=== PATIENT | female | born 1990 | race Caucasian/White ===

== ENCOUNTER 2017-09-11 10:08 | Emergency (ER) | payer OTHER | END 2017-09-11 12:57 | disposition home or self-care (01) | LOC: FTE 10:08 | DX: J06.9 Acute upper respiratory infection, unspecified (principal) | CPT/HCPCS: 99283; Z7502 ==

== ENCOUNTER 2017-10-13 08:44 | Emergency (ER) | payer OTHER | END 2017-10-13 10:13 | disposition home or self-care (01) | LOC: FTE 08:44 | DX: J06.9 Acute upper respiratory infection, unspecified (principal) | CPT/HCPCS: 99283; Z7502 ==

== ENCOUNTER 2018-02-08 08:08 | Emergency (ER) | payer OTHER | END 2018-02-08 09:33 | disposition home or self-care (01) | LOC: FTE 08:08 | DX: S99.912A Unspecified injury of left ankle, initial encounter (principal); S99.922A Unspecified injury of left foot, initial encounter; X58.XXXA Exposure to other specified factors, initial encounter; Y92.9 Unspecified place or not applicable | CPT/HCPCS: 73610; 81025; 99283-25 ==

== ENCOUNTER 2018-10-11 08:04 | Emergency (ER) | payer OTHER | END 2018-10-11 09:08 | disposition home or self-care (01) | LOC: FTE 08:04 | DX: J06.9 Acute upper respiratory infection, unspecified (principal) | CPT/HCPCS: 99282; Z7502 ==